=== PATIENT | male | born 1955 | race Caucasian/White ===

== ENCOUNTER → 2017-04-26 | Outpatient (CLI) | payer OTHER ==
[~2017-04-26] MED LIST: ALBU90OI INH; ALLERGY RELIEF10 MG PO; ALLO100; ALLO100 PO; ALLO300; ARIPIPRAZOLE15 MG; ASPI81CH; ASPI81EC PO; AZIT250 PO; Abilify2 MG PO; BENTYL20 MG PO; Benztropine Mesy1 MG; Byetta10 MCG/0.0 SQ; CELE200 PO; CEPH500 PO; CLOT1TC TOP; CYAN1000 PO; CYCL10 PO; DIPH50 PO; DOCU100 PO; DOXY100 PO; Diflucan150 MG PO; ENAL10; EUCERIN ORIGIN250 ML TOP; FISH1000 PO; FLUC200 PO; FLUT.05NI; Flonase 0.05% N16 GM; GABA100 PO; GABA400 PO; GLUC500 PO; GLUCOSAMINE S1000 M1 PO; GUAI1200ER; GUAI600T33 PO; IBUHYD PO; LAVAP17G PO; LEVO750 PO; LISI20; LISI20 PO; LITH300C; LITH300C PO; LITH300CA PO; LOSA50; LOSA50 PO; MELA3 PO; METAGLIP; METF500 PO; MONT10T PO; MULTI VITAMIN1 EACH PO; MULVITMINF PO; Meribin5 MG; NAPR500 PO; NYST100000 PO; OLAN5A MM; OMEP40CA12 PO; PANT40 PO; PRAV20 PO; RANI150 PO; RXCLIN PO; SENN187 PO; SIME80CH PO; SODBIC650 PO; Saw Palmetto450 MG PO; TAMS.4ER PO; TRAZ50 PO
== END | disposition home or self-care (01) ==
LOC: LAB 15:50
DX: R35.0 Frequency of micturition (principal); R39.14 Feeling of incomplete bladder emptying
CPT/HCPCS: 87086

== ENCOUNTER → 2018-05-17 | Outpatient (CLI) | payer OTHER ==
[2018-05-17 16:22] LABS: Source, Urine Clean Catch
[2018-05-17 18:13] LABS: Bilirubin, Urine Neg (Neg); Blood, Urine Neg (Neg); Glucose Qualitative, Urine Neg (Neg); Ketones, Urine Neg (Neg); Leukocyte Esterase, Urine Neg (Neg); Nitrite, Urine Neg (Neg); Protein, Urine Neg (Neg); Specific Gravity, Urine 1.015 (1.003-1.022); Urobilinogen, Urine NORM (Normal)
[2018-05-17 18:26] LABS: Appearance, Urine Clear (Clear); Color, Urine Yellow (P-Yellow)
== END | disposition home or self-care (01) ==
LOC: LAB SHORT 16:19 → LAB 16:19
PROVIDERS: Family Medicine
DX: M54.5 Low back pain (principal)
CPT/HCPCS: 81003

== ENCOUNTER 2020-06-30 07:03 | Day surgery (SDC) | payer OTHER ==
[~2020-06-30] VITALS: Ht 177.8 cm; Wt 87.3 kg
[2020-06-30] MEDS ORDERED: METF500 PO (08:08)
[2020-06-30] MEDS ORDERED: GENICIN500 M1 PO (08:09)
[2020-06-30] MEDS ORDERED: SENNA LAXATIVE8.6 MG PO (08:09)
[2020-06-30] MEDS ORDERED: FENOFIBRATE48 MG PO (08:09)
[2020-06-30] MEDS ORDERED: LOSA50 PO (08:10)
[2020-06-30] MEDS ORDERED: PIOG15 PO (08:10)
[2020-06-30] MEDS ORDERED: MIRT15ST PO (08:10)
[2020-06-30] MEDS ORDERED: SODBIC650 PO (08:10)
[2020-06-30] MEDS ORDERED: Aspir 8181 MG PO (08:11)
--- NOTE | 2020-06-30 08:17 | NUR ---
06/30/20 0817 Carol Alcaraz V 1 DROP TETRACAINE APPLIED IN L EYE AT 0752, 1 PLEDGET APPLIED IN L LOWER EYE LID AT 0800 PER ORDERS.
== END 2020-06-30 09:35 | disposition home or self-care (01) ==
LOC: ORSCSDS 07:03
PROVIDERS: Ophthalmology
PROC: 08RK3JZ Replacement of Left Lens with Synthetic Substitute, Percutaneous Approach (ICD-10-PCS; principal; 2020-06-30 08:45)
DX: H25.12 Age-related nuclear cataract, left eye (principal); E11.9 Type 2 diabetes mellitus without complications; Z87.891 Personal history of nicotine dependence; Z79.899 Other long term (current) drug therapy; Z79.84 Long term (current) use of oral hypoglycemic drugs
CPT/HCPCS: 82947; A9270; J2001; J2250; J3010; J3301; J7040; V2632

== ENCOUNTER → 2021-03-22 | Outpatient (CLI) | payer OTHER ==
[~2021-03-22] MED LIST changes: +Aspir 8181 MG PO; +FENOFIBRATE48 MG PO; +GENICIN500 M1 PO; +MIRT15ST PO; +PIOG15 PO; +SENNA LAXATIVE8.6 MG PO
== END | disposition home or self-care (01) ==
LOC: LAB SHORT 16:01
PROVIDERS: Physician Assistant
DX: R35.0 Frequency of micturition (principal)
CPT/HCPCS: 84153

== ENCOUNTER 2021-04-17 04:16 | Emergency (ER) | payer OTHER ==
[~2021-04-17] VITALS: Ht 180.3 cm; Wt 88.0 kg
[2021-04-17 05:01] LABS: BASOPHILS ABSOLUTE AUTO 0.01 K/mm3 (0.00-0.23); BASOPHILS PERCENT AUTO 0 % (0-2); EOSINOPHILS PERCENT AUTO 0 % (0-6); Hematocrit 41.6 % (37.0-53.0); Hemoglobin 14.5 g/dL (13.5-17.5); IMMATURE GRAN ABSOLUTE AUTO 0.05 K/mm3 (0.00-0.10); IMMATURE GRAN PERCENT AUTO 0 % (0-1); LYMPHOCYTES ABSOLUTE AUTO 1.45 K/mm3 (0.84-5.20); LYMPHOCYTES PERCENT AUTO 12 % (21-46); MONOCYTES ABSOLUTE AUTO 1.12 K/mm3 (0.16-1.47); MONOCYTES PERCENT AUTO 9 % (4-13); Mean Corpuscular HGB 31.5 pg (26.0-34.0); Mean Corpuscular HGB Conc 34.9 g/dL (31.5-36.5); Mean Corpuscular Volume 90 fL (80-100); Mean Platelet Volume 10.6 fL (9.1-12.4); NEUTROPHILS ABSOLUTE AUTO 9.53 K/mm3 (1.96-9.15); NEUTROPHILS PERCENT AUTO 78 % (41-73); Platelet Count 265 K/mm3 (150-400); RDW Coefficient Variation 12.8 % (11.7-14.2); RDW Standard Deviation 41.8 fL (35.1-46.3); Red Blood Cell Count 4.61 M/mm3 (4.30-5.90); White Blood Cell Count 12.16 K/mm3 (4.00-11.30)
[2021-04-17 05:25] LABS: Alanine Aminotransfer (ALT/SGP 40 U/L (12-78); Albumin, Blood 3.6 g/dL (3.4-5.0); Albumin/Globulin Ratio 0.8 (0.8-1.8); Alk Phos 57 U/L (50-136); Anion Gap 9 mmol/L (6-16); Aspartate Aminotrans (AST/SGOT 40 U/L (12-37); Bilirubin, Total 0.5 mg/dL (0.1-1.0); Blood Urea Nitrogen 23 mg/dL (8-24); Bun/Creatinine Ratio 21.3 (12.0-20.0); CO2, Blood 23 mmol/L (21-32); Calcium, Blood 9.6 mg/dL (8.5-10.1); Chloride, Blood 100 mmol/L (98-108); Creatinine, Blood 1.08 mg/dL (0.60-1.20); Globulin, Blood 4.3 g/dL (2.2-4.0); Glomerular Filtration Rate >60 (60-); Glucose, Blood 167 mg/dL (70-99); Potassium, Blood 4.8 mmol/L (3.5-5.5); Sodium, Blood 132 mmol/L (136-145); Total Protein, Blood 7.9 g/dL (6.4-8.2)
[2021-04-17 08:28] LABS: Influenza A, PCR NEGATIVE (NEGATIVE); Influenza B, PCR NEGATIVE (NEGATIVE); Resp Syncytial Virus, PCR NEGATIVE (NEGATIVE); SARS-Cov-2 (COVID-19) PCR, MMC NEGATIVE (NEGATIVE)
[2021-04-17 09:02] LABS: Prothrombin Time Results 10.5 Sec (9.7-11.5)
[2021-04-17 09:20] LABS: Source, Urine Clean Catch
[2021-04-17 09:22] LABS: Appearance, Urine Clear (Clear); Bilirubin, Urine Neg (Neg); Blood, Urine Neg (Neg); Color, Urine Yellow (P-Yellow); Glucose Qualitative, Urine 3+ (Neg); Ketones, Urine Neg (Neg); Leukocyte Esterase, Urine Neg (Neg); Nitrite, Urine Neg (Neg); Protein, Urine 2+ (Neg); Urobilinogen, Urine NORM (Normal)
[2021-04-17 09:38] LABS: Bacteria Not Seen /hpf; Red Blood Cells, Urine 0-2 /hpf (0-2); Squamous Epithelial Cells Not Seen /hpf (Few); White Blood Cells, Urine 0-2 /hpf (0-5)
[2021-04-17 14:17] LABS: Alanine Aminotransfer (ALT/SGP 37 U/L (12-78); Albumin, Blood 3.6 g/dL (3.4-5.0); Alk Phos 61 U/L (50-136); Anion Gap 7 mmol/L (6-16); Aspartate Aminotrans (AST/SGOT 21 U/L (12-37); Bilirubin, Total 0.4 mg/dL (0.1-1.0); Blood Urea Nitrogen 18 mg/dL (8-24); Bun/Creatinine Ratio 16.8 (12.0-20.0); CO2, Blood 24 mmol/L (21-32); Chloride, Blood 102 mmol/L (98-108); Creatinine, Blood 1.07 mg/dL (0.60-1.20); Globulin, Blood 3.6 g/dL (2.2-4.0); Glomerular Filtration Rate >60 (60-); Glucose, Blood 142 mg/dL (70-99); Potassium, Blood 4.1 mmol/L (3.5-5.5); Sodium, Blood 133 mmol/L (136-145); Total Protein, Blood 7.2 g/dL (6.4-8.2)
== END 2021-04-17 16:05 | disposition short-term general hospital (02) ==
LOC: ER 04:16
PROVIDERS: Emergency Medicine; Student in an Organized Health Care Education/Training Program
DX: S06.370A Contusion, laceration, and hemorrhage of cerebellum without loss of consciousness, initial encounter (principal); S06.380A Contusion, laceration, and hemorrhage of brainstem without loss of consciousness, initial encounter; I12.9 Hypertensive chronic kidney disease with stage 1 through stage 4 chronic kidney disease, or unspecified chronic kidney disease; T45.525A Adverse effect of antithrombotic drugs, initial encounter; W19.XXXA Unspecified fall, initial encounter; Z88.5 Allergy status to narcotic agent; Z88.2 Allergy status to sulfonamides; Z88.1 Allergy status to other antibiotic agents; Z79.899 Other long term (current) drug therapy; Z79.84 Long term (current) use of oral hypoglycemic drugs; Z79.82 Long term (current) use of aspirin; E11.22 Type 2 diabetes mellitus with diabetic chronic kidney disease; M10.9 Gout, unspecified; E78.5 Hyperlipidemia, unspecified; N18.9 Chronic kidney disease, unspecified; Z87.891 Personal history of nicotine dependence
CPT/HCPCS: 0241U; 36415; 36556; 70450; 70553; 71045; 80053; 81001; 85025; 85610; 85730; 86850; 86900; 86901; 93005; 93010; 96365; 96366; 96375; 99285-25; A9579; C1751; J2060; J2765; J7030; J7050; P9053

== ENCOUNTER 2021-05-24 11:33 | Observation (INO) | payer OTHER ==
[~2021-05-24] VITALS: Ht 180.3 cm; Wt 81.7 kg
[~2021-05-24 11:33] MED LIST changes: +GLUCOPHAGE1000 M2 PO
[2021-05-24 12:29] LABS: Source, Urine Clean Catch
[2021-05-24 12:37] LABS: Bilirubin, Urine Neg (Neg); Blood, Urine 2+ (Neg); Glucose Qualitative, Urine 2+ (Neg); Ketones, Urine 2+ (Neg); Leukocyte Esterase, Urine Neg (Neg); Nitrite, Urine Neg (Neg); Protein, Urine 2+ (Neg); Specific Gravity, Urine 1.015 (1.003-1.022); Urobilinogen, Urine NORM (Normal)
[2021-05-24 12:42] LABS: Appearance, Urine Hazy (Clear); Color, Urine Pale Yellow (P-Yellow)
[2021-05-24 12:43] LABS: Amorphous Light (0-Heavy); Bacteria Rare /hpf; Squamous Epithelial Cells Rare /hpf (Few); White Blood Cells, Urine 0-2 /hpf (0-5)
[2021-05-24 13:30] LABS: BASOPHILS ABSOLUTE AUTO 0.01 K/mm3 (0.00-0.23); BASOPHILS PERCENT AUTO 0 % (0-2); EOSINOPHILS PERCENT AUTO 0 % (0-6); Hematocrit 42.6 % (37.0-53.0); Hemoglobin 15.1 g/dL (13.5-17.5); IMMATURE GRAN ABSOLUTE AUTO 0.03 K/mm3 (0.00-0.10); IMMATURE GRAN PERCENT AUTO 0 % (0-1); LYMPHOCYTES ABSOLUTE AUTO 0.96 K/mm3 (0.84-5.20); LYMPHOCYTES PERCENT AUTO 9 % (21-46); MONOCYTES ABSOLUTE AUTO 1.27 K/mm3 (0.16-1.47); MONOCYTES PERCENT AUTO 12 % (4-13); Mean Corpuscular HGB 30.7 pg (26.0-34.0); Mean Corpuscular HGB Conc 35.4 g/dL (31.5-36.5); Mean Corpuscular Volume 87 fL (80-100); Mean Platelet Volume 9.4 fL (9.1-12.4); NEUTROPHILS ABSOLUTE AUTO 8.21 K/mm3 (1.96-9.15); NEUTROPHILS PERCENT AUTO 78 % (41-73); Platelet Count 247 K/mm3 (150-400); RDW Standard Deviation 38.1 fL (35.1-46.3); Red Blood Cell Count 4.92 M/mm3 (4.30-5.90); White Blood Cell Count 10.48 K/mm3 (4.00-11.30)
[2021-05-24 13:52] LABS: Alanine Aminotransfer (ALT/SGP 27 U/L (12-78); Albumin, Blood 3.6 g/dL (3.4-5.0); Albumin/Globulin Ratio 0.9 (0.8-1.8); Alk Phos 97 U/L (50-136); Anion Gap 12 mmol/L (6-16); Aspartate Aminotrans (AST/SGOT 60 U/L (12-37); Bilirubin, Total 0.9 mg/dL (0.1-1.0); Blood Urea Nitrogen 15 mg/dL (8-24); Bun/Creatinine Ratio 14.6 (12.0-20.0); CO2, Blood 19 mmol/L (21-32); Chloride, Blood 95 mmol/L (98-108); Creatinine, Blood 1.03 mg/dL (0.60-1.20); Globulin, Blood 3.9 g/dL (2.2-4.0); Glomerular Filtration Rate >60 (60-); Glucose, Blood 138 mg/dL (70-99); Sodium, Blood 126 mmol/L (136-145); Total Protein, Blood 7.5 g/dL (6.4-8.2)
[2021-05-24 16:27] LABS: Influenza A, PCR NEGATIVE (NEGATIVE); Influenza B, PCR NEGATIVE (NEGATIVE); Resp Syncytial Virus, PCR NEGATIVE (NEGATIVE)
[2021-05-24 17:58] LABS: SARS-Cov-2 (COVID-19) PCR, MMC POSITIVE (NEGATIVE)
[2021-05-24] MEDS ORDERED: ALLO100 PO (20:43)
[2021-05-24] MEDS ORDERED: ASPI81CH PO (20:45)
[2021-05-24] MEDS ORDERED: FENOFIBRATE48 MG PO (20:46)
[2021-05-24] MEDS ORDERED: GABA300 PO (20:47)
[2021-05-24] MEDS ORDERED: GLUCOSAMINE HCL PO (20:48)
[2021-05-24] MEDS ORDERED: LOSARTAN POTAS100 M1 PO (20:50)
[2021-05-24] MEDS ORDERED: Glucophage 500 mg PO (20:51)
[2021-05-24] MEDS ORDERED: MIRTAZAPINE7.5 M1 PO (20:52)
[2021-05-24] MEDS ORDERED: OLAN2.5 PO (20:54)
[2021-05-24] MEDS ORDERED: PANT40 PO (20:55)
[2021-05-24] MEDS ORDERED: ACTOS15 MG PO (20:56)
[2021-05-24] MEDS ORDERED: PRAVASTATIN SOD10 M1 PO (20:57)
[2021-05-24] MEDS ORDERED: SENN187 PO (20:58)
[2021-05-24] MEDS ORDERED: SODBIC650 PO (21:00)
--- NOTE | 2021-05-25 05:26 | NUR ---
SHIFT SUMMARY AOX3-SELF, PLACE, DATE, SITUATION. REPORTS FEELING FORGETFUL. SLOW TO RESPOND. 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 DENIES N/T. FOLLOWS DIRECTIONS. POOR HISTORIAN, UNAWARE MEDS & STATES SOMEONE ELSE GETS THEM PREPARED FOR HIM. ADMITTED FOR POSS CVA, DX c COVID. HAD BEEN HAVING MULT FALLS @HOME. EXCORIATIONS, SCRAPES, BRUISING SCATTERED T/O BODY, SEE PICTURES IN CHART. HAS SUTURES ON L EYE, BRUISED R PINKY FINGER. VSS. TELE NSR @93. DENIES PAIN, N/V. SPO2 >90% ON RA. LS DIM IN BASES. E/U RESP. GETS IRRITABLE c STAFF WHEN PROVIDING CARE. FLAT WITHDRAWN AFFECT. CALL LIGHT & BED ALARM IN PLACE. WCTM.
[2021-05-25 05:36] LABS: BASOPHILS ABSOLUTE AUTO 0.01 K/mm3 (0.00-0.23); BASOPHILS PERCENT AUTO 0 % (0-2); EOSINOPHILS ABSOLUTE AUTO 0.02 K/mm3 (0.00-0.68); EOSINOPHILS PERCENT AUTO 0 % (0-6); Hematocrit 41.5 % (37.0-53.0); Hemoglobin 14.5 g/dL (13.5-17.5); IMMATURE GRAN ABSOLUTE AUTO 0.02 K/mm3 (0.00-0.10); IMMATURE GRAN PERCENT AUTO 0 % (0-1); LYMPHOCYTES ABSOLUTE AUTO 0.86 K/mm3 (0.84-5.20); LYMPHOCYTES PERCENT AUTO 15 % (21-46); MONOCYTES ABSOLUTE AUTO 0.95 K/mm3 (0.16-1.47); MONOCYTES PERCENT AUTO 17 % (4-13); Mean Corpuscular HGB 30.8 pg (26.0-34.0); Mean Corpuscular HGB Conc 34.9 g/dL (31.5-36.5); Mean Corpuscular Volume 88 fL (80-100); Mean Platelet Volume 9.8 fL (9.1-12.4); NEUTROPHILS ABSOLUTE AUTO 3.81 K/mm3 (1.96-9.15); NEUTROPHILS PERCENT AUTO 67 % (41-73); Platelet Count 219 K/mm3 (150-400); RDW Coefficient Variation 12.5 % (11.7-14.2); RDW Standard Deviation 40.1 fL (35.1-46.3); Red Blood Cell Count 4.71 M/mm3 (4.30-5.90); White Blood Cell Count 5.67 K/mm3 (4.00-11.30)
[2021-05-25 06:18] LABS: Bun/Creatinine Ratio 11.3 (12.0-20.0); Creatinine, Blood 1.24 mg/dL (0.60-1.20); Potassium, Blood 3.8 mmol/L (3.5-5.5)
--- NOTE | 2021-05-25 14:53 | NUR ---
ABD PAD APPLIED TO LEFT KNEE WHERE SOME ABRASIONS STARTED TO BLEED WHEN WORKING WITH PT/OT.
--- NOTE | 2021-05-25 15:43 | NUR ---
NEW CONDOM CATH APPLIED PER PAUL CARDOZO CNA. TOLERATED WELL.
--- NOTE | 2021-05-25 16:57 | NUR ---
NO C/O PAIN TODAY. TOLERATED FOOD AND FLUIDS. CONDOM CATHETER HAD TO BE REPLACED X 3 TODAY (TWICE DUE TO GETTING UP WITH THERAPY). EXCELLENT URINE OUTPUT. IVF INFUSING WITHOUT DIFFICULTY. HAND XRAY ORDERED AND DUE TO BE DONE. PINKIE FINGER HAS NOT HAD ANY INCREASE IN EDEMA SINCE MARKED BY THE ECONOMIC HISTORY TEACHER NURSE. PATIENT HAS A SUTURE ABOVE HIS EYE BROW FROM A PREVIOUS ER VISIT THAT HE STATES NEEDS TO BE REMOVED TOMORROW OR THE FOLLOWING DAY. WILL INFORM PM SHIFT ABOUT IT SO THE DAY NURSE CAN DISCUSS WITH MD ON ROUNDS. PATIENT IS AWARE. WILL MONITOR.
[2021-05-26] MEDS ORDERED: VITAMIN D325 MC3 PO (03:02)
[2021-05-26] MEDS ORDERED: TAMS.4ER PO (03:12)
[2021-05-26] MEDS ORDERED: CARV25 PO (03:12)
[2021-05-26] MEDS ORDERED: DOCU100 PO (03:14)
[2021-05-26] MEDS ORDERED: MIRALAX17 GM PO (03:14)
[2021-05-26] MEDS ORDERED: OLAN2.5 PO (03:17)
[2021-05-26] MEDS ORDERED: ZYRTEC10 M1 PO (03:19)
[2021-05-26] MEDS ORDERED: Flonase 0.05% N16 GM (03:19)
[2021-05-26] MEDS ORDERED: FISH OIL 1,2001 EAC1 PO (03:22)
--- NOTE | 2021-05-26 04:54 | NUR ---
SHIFT SUMMARY PT IS A 66 Y/O MALE, ADMITTED FOR CVA. HE IS A&O X 3, FORGETFUL AT TIMES. 1PA C FWW TO THE BSC. CONDOM CATH IN PLACE, REPLACED ONCE DURING THE NIGHT AFTER PT PULLED IT OFF. NO C/O ACUTE PAIN, NAUSEA OR SOB. TELE SHOWED NSR IN THE 80S. VITAL SIGNS OTHERWISE STABLE. PT RECEIVING NS @ 75 ML/HR. NO OTHER ACUTE CHANGES IN PT CONDITION NOTED DURING THE NIGHT. WILL CONTINUE TO MONITOR AND TREAT PER EMAR UNTIL HAND OFF TO DAY SHIFT RN.
--- NOTE | 2021-05-26 08:31 | NUR ---
SPOKE TO DR. ADASM, RECEIVED TELEPHONE CONFIRMATION THAT L HAND XRAY THAT WAS ORDERED SHOULD BE CHANGED TO R HAND. VÍCTOR LING NOTIFIED AND WILL CHANGE ORDER WHEN SHE RETURNS TO RADIOLOGY DEPT.
--- NOTE | 2021-05-26 17:51 | NUR ---
SHIFT SUMMARY: NO ACUTE EVENTS. DENIES PAIN. NEURO EXAM UNCHANGED. A&O X 2-3, POOR SHORT TERM MEMORY, CAN BE DEMANDING AT TIMES. NO EVENTS ON TELEMETRY, SR 90'S. HAS CONDOM CATH DRAINING YELLOW URINE. HAD XRAY OF R HAND. HAS MULTIPLE ABRASIONS AND CONTUSIONS ALL OVER HIS BODY. SUTURES IN PLACE OVER L EYE. PLAN IS PLACEMENT AT [facility] COVID UNIT.
--- NOTE | 2021-05-27 04:07 | NUR ---
SHIFT SUMMARY PT TOOK CONDOM CATH OFF SEVERAL TIMES. UNABLE TO GET IT TO STAY ON. ASKED PT IF HE COULD USE URINAL, HE SAID NO, BUT WHEN HANDED A URINAL, PT URINATED INTO IT. PT USED URINAL SEVERAL TIMES TONIGHT AND THEN BEGAN URINATING ON HIS GOWN AND CALLING STAFF INTO ROOM TO CHANGE HIM. PT ASKED FOR COUGH MEDICINE, WHICH HE WAS GIVEN. PT HAS WOUNDS ALL OVER HIS BODY. MEPILEX DRESSING TO L KNEE. 1 PERSON ASSIST WITH FWW. PT IS A&O X 2-3.
--- NOTE | 2021-05-27 10:36 | NUR ---
PATIENT ACCEPTED TO [facility] COVID UNIT. DR. REYNOLDS NOTIFIED. ALSO ASKED FOR ORDER TO REMOVE SUTURES FROM L EYEBROW, AND REQUESTED [facility] TO ASSESS PT'S KIDNEYS AND PERHAPS D/C IVF.
--- NOTE | 2021-05-27 14:44 | NUR ---
SUTURE REMOVAL: EDUCATED PT ABOUT SUTURE REMOVAL PROCESS, VERBALLY AGREED TO PROCEED. THREE SUTURES TOTAL REMOVED FROM L ORBIT. NO BLEEDING NOTED, LACERATION IS WELL APPROXIMATED AND HEALING, NO EDEMA, ERYTHEMA, OR DRAINAGE. PT TOLERATED PROCEDURE WELL.
[2021-05-27] MEDS ORDERED: Melatonin PO (15:26)
[2021-05-27] MEDS ORDERED: ROBITUSSIN DM PO (15:31)
--- NOTE | 2021-05-27 16:46 | NUR ---
PT TRANSFERRING TO [facility]. ATTEMPTED TO GIVE REPORT TO FACILITY NURSE, BUT KEPT BEING PLACED ON HOLD AND RE-ROUTED REPEATEDLY WITH NO ANSWER. LEFT MESSAGE WITH GENETIC PHYSICIAN TO HAVE NURSE CALL BACK FOR REPORT.
--- NOTE | 2021-05-27 18:18 | NUR ---
PATIENT DISCHARGED TO [facility] UNIT FOR REHAB VIA AMBULANCE. IV SALINE LOCKS AND TELEMETRY REMOVED. OFF UNIT AT 1812 VIA GURNEY. NO BELONGINGS FOUND IN ROOM.
== END 2021-05-27 18:00 ==
LOC: ER 11:33 → MEDS 11:34 → ERHOLD 11:34 → MEDS 21:20
PROVIDERS: Emergency Medicine; ADMIT Internal Medicine
DX: I63.9 Cerebral infarction, unspecified (principal); R29.6 Repeated falls; I95.1 Orthostatic hypotension; U07.1 COVID-19; E87.1 Hypo-osmolality and hyponatremia; E11.22 Type 2 diabetes mellitus with diabetic chronic kidney disease; E11.42 Type 2 diabetes mellitus with diabetic polyneuropathy; I12.9 Hypertensive chronic kidney disease with stage 1 through stage 4 chronic kidney disease, or unspecified chronic kidney disease; N18.9 Chronic kidney disease, unspecified; M10.9 Gout, unspecified; E78.00 Pure hypercholesterolemia, unspecified; G47.33 Obstructive sleep apnea (adult) (pediatric); K21.9 Gastro-esophageal reflux disease without esophagitis; Z88.5 Allergy status to narcotic agent; Z88.2 Allergy status to sulfonamides; Z88.1 Allergy status to other antibiotic agents; Z88.8 Allergy status to other drugs, medicaments and biological substances; Z79.84 Long term (current) use of oral hypoglycemic drugs; Z79.82 Long term (current) use of aspirin
CPT/HCPCS: 0241U; 36415; 70450; 71045; 73120; 80048; 80053; 81001; 82947; 85025; 93005; 93010; 97110; 97161; 97166; 97530; 97530-CO; 97535; 97535-CO; 99285-25; A9270; G0378; J7030

== ENCOUNTER 2021-06-04 16:10 | Inpatient (IN) | payer OTHER ==
[~2021-06-04] VITALS: Ht 182.9 cm; Wt 82.0 kg
[~2021-06-04 16:10] MED LIST changes: +ACTOS15 MG PO; +ASPI81CH PO; +CARV25 PO; +FISH OIL 1,2001 EAC1 PO; +GABA300 PO; +GLUCOSAMINE HCL PO; +Glucophage 500 mg PO; +LOSARTAN POTAS100 M1 PO; +MIRALAX17 GM PO; +MIRTAZAPINE7.5 M1 PO; +Melatonin PO; +OLAN2.5 PO; +PRAVASTATIN SOD10 M1 PO; +ROBITUSSIN DM PO; +VITAMIN D325 MC3 PO; +ZYRTEC10 M1 PO
[2021-06-04 16:34] LABS: BASOPHILS ABSOLUTE AUTO 0.07 K/mm3 (0.00-0.23); BASOPHILS PERCENT AUTO 0 % (0-2); EOSINOPHILS ABSOLUTE AUTO 0.03 K/mm3 (0.00-0.68); EOSINOPHILS PERCENT AUTO 0 % (0-6); Hematocrit 43.8 % (37.0-53.0); Hemoglobin 14.2 g/dL (13.5-17.5); IMMATURE GRAN ABSOLUTE AUTO 0.17 K/mm3 (0.00-0.10); IMMATURE GRAN PERCENT AUTO 1 % (0-1); LYMPHOCYTES ABSOLUTE AUTO 1.31 K/mm3 (0.84-5.20); LYMPHOCYTES PERCENT AUTO 6 % (21-46); MONOCYTES ABSOLUTE AUTO 2.27 K/mm3 (0.16-1.47); MONOCYTES PERCENT AUTO 10 % (4-13); Mean Corpuscular HGB 30.1 pg (26.0-34.0); Mean Corpuscular HGB Conc 32.4 g/dL (31.5-36.5); Mean Corpuscular Volume 93 fL (80-100); Mean Platelet Volume 9.1 fL (9.1-12.4); NEUTROPHILS ABSOLUTE AUTO 19.75 K/mm3 (1.96-9.15); NEUTROPHILS PERCENT AUTO 84 % (41-73); Platelet Count 364 K/mm3 (150-400); RDW Coefficient Variation 12.7 % (11.7-14.2); RDW Standard Deviation 43.3 fL (35.1-46.3); Red Blood Cell Count 4.72 M/mm3 (4.30-5.90)
[2021-06-04 16:55] LABS: Source, Urine Foley catheter
[2021-06-04 16:56] LABS: Albumin, Blood 3.4 g/dL (3.4-5.0); Albumin/Globulin Ratio 0.8 (0.8-1.8); Bilirubin, Total 0.4 mg/dL (0.1-1.0); Calcium, Blood 9.3 mg/dL (8.5-10.1); Creatinine, Blood 1.37 mg/dL (0.60-1.20); Globulin, Blood 4.1 g/dL (2.2-4.0); Potassium, Blood 5.8 mmol/L (3.5-5.5); Total Protein, Blood 7.5 g/dL (6.4-8.2)
[2021-06-04 17:00] LABS: Appearance, Urine Clear (Clear); Bilirubin, Urine Neg (Neg); Blood, Urine Neg (Neg); Color, Urine Yellow (P-Yellow); Glucose Qualitative, Urine 2+ (Neg); Ketones, Urine 1+ (Neg); Leukocyte Esterase, Urine Neg (Neg); Nitrite, Urine Neg (Neg); Protein, Urine 2+ (Neg); Specific Gravity, Urine 1.025 (1.003-1.022); Urobilinogen, Urine 1+ (Normal)
[2021-06-04 17:19] LABS: Bacteria Mod /hpf; Red Blood Cells, Urine Not Seen /hpf (0-2); Squamous Epithelial Cells Not Seen /hpf (Few); White Blood Cells, Urine 0-2 /hpf (0-5)
[2021-06-04 17:22] LABS: PCO2 Arterial 42.5 mmHg (35-45); PO2 Arterial 63.1 mmHg (80-100); pH Blood Arterial 7.35 (7.35-7.45)
--- NOTE | 2021-06-05 | NUR ---
PT ADMITTED TO ROOM ICU 11 FROM ED. ARRIVES TO ROOM AT 2009. REPORT RECEIVED. PT TRANSFERRED FROM [facility] TO BED WITH 5 PERSON ASSIST. PT NOT RESPONSIVE TO COMMANDS. DOES MOVE UPPER EXTREMITIES SLIGHTLY WHILE BEING SUCTIONED. UNSURE OF IF THIS IS REFLEX OR PURPOSEFUL. PUPILS 2MM AND WILL RESPOND TO LIGHT. DOES NOT TRACK. HAVE NOT STARTED PROPOFOL. DR GONZALEZ HAS COME TO SEE PT. ORDERS HAVE BEEN RECEIVED. YELLOW SECRETIONS RETURNED WITH ETT SUCTIONING.
[2021-06-05 04:36] LABS: BASOPHILS ABSOLUTE AUTO 0.03 K/mm3 (0.00-0.23); BASOPHILS PERCENT AUTO 0 % (0-2); EOSINOPHILS ABSOLUTE AUTO 0.04 K/mm3 (0.00-0.68); EOSINOPHILS PERCENT AUTO 0 % (0-6); Hematocrit 38.9 % (37.0-53.0); Hemoglobin 12.9 g/dL (13.5-17.5); IMMATURE GRAN ABSOLUTE AUTO 0.05 K/mm3 (0.00-0.10); IMMATURE GRAN PERCENT AUTO 0 % (0-1); LYMPHOCYTES ABSOLUTE AUTO 2.15 K/mm3 (0.84-5.20); LYMPHOCYTES PERCENT AUTO 15 % (21-46); MONOCYTES ABSOLUTE AUTO 0.97 K/mm3 (0.16-1.47); MONOCYTES PERCENT AUTO 7 % (4-13); Mean Corpuscular HGB 30.5 pg (26.0-34.0); Mean Corpuscular HGB Conc 33.2 g/dL (31.5-36.5); Mean Corpuscular Volume 92 fL (80-100); Mean Platelet Volume 8.9 fL (9.1-12.4); NEUTROPHILS ABSOLUTE AUTO 11.58 K/mm3 (1.96-9.15); NEUTROPHILS PERCENT AUTO 78 % (41-73); Platelet Count 295 K/mm3 (150-400); RDW Coefficient Variation 12.9 % (11.7-14.2); Red Blood Cell Count 4.23 M/mm3 (4.30-5.90); White Blood Cell Count 14.82 K/mm3 (4.00-11.30)
[2021-06-05 04:53] LABS: Alanine Aminotransfer (ALT/SGP 26 U/L (12-78); Albumin, Blood 2.5 g/dL (3.4-5.0); Albumin/Globulin Ratio 0.7 (0.8-1.8); Alk Phos 102 U/L (50-136); Anion Gap 5 mmol/L (6-16); Aspartate Aminotrans (AST/SGOT 72 U/L (12-37); Bilirubin, Total 0.3 mg/dL (0.1-1.0); Blood Urea Nitrogen 23 mg/dL (8-24); Bun/Creatinine Ratio 19.7 (12.0-20.0); CO2, Blood 25 mmol/L (21-32); Calcium, Blood 8.6 mg/dL (8.5-10.1); Chloride, Blood 112 mmol/L (98-108); Creatinine, Blood 1.17 mg/dL (0.60-1.20); Globulin, Blood 3.8 g/dL (2.2-4.0); Glomerular Filtration Rate >60 (60-); Glucose, Blood 149 mg/dL (70-99); Sodium, Blood 142 mmol/L (136-145); Total Protein, Blood 6.3 g/dL (6.4-8.2)
--- NOTE | 2021-06-05 06:45 | NUR ---
PT HAS NOT BEEN ON ANY SEDATION THROUGHOUT THE NIGHT. DOES HAVE PUPILLARY RESPONSE TO LIGHT. DOES NOT RESPOND TO ANY COMMANDS. NO GAG REFLEX NOTED. DOES COUGH WITH DEEP ETT SUCTIONING. WILL CONTINUE TO MONITOR PT, AND WILL REPORT OFF TO ONCOMING RN.
--- NOTE | 2021-06-05 07:00 | NUR ---
ASSUME CARE: I have assumed care of this pt.
--- NOTE | 2021-06-05 11:57 | NUR ---
Received t/c from Claudia, ICU charge nurse regarding care planning. Spoke to pt's sister Nara, who resides in [place] and reports she is unable to travel at this time. She is tearful on the phone, states she knows pt's wishes were "Do Not Resuscitate". She states she would like it if his ex- could be present prior to withdrawing care, as she is, "The closest thing [place] has to family in [place]". states he and his exwife have remained close even with the divorce. She states pt has a daughter, but that pt and daughter are estranged, and there is no available contact information for her at this time. Will await return phone call from pt's sister.
--- NOTE | 2021-06-05 14:47 | NUR ---
Spoke to pt's sister again today. She tells me she was able to reach pt's ex-, Stefan who states she will be here tomorrow morning at 11am for withdrawal of care.
[2021-06-05 15:49] LABS: U Amphetamine Screen Not Detected; U Barbituate Screen Not Detected; U Benzodiazapine Screen Not Detected; U Buprenorphine Screen Not Detected; U Cannabinoids Screen Not Detected; U Cocaine Screen Not Detected; U Methadone Screen Not Detected; U Methamphetamine Screen Not Detected; U Opiates Screen Not Detected; U Oxycodone Screen Not Detected; U Phencyclidine Screen Not Detected; U Propoxyphene Screen Not Detected
--- NOTE | 2021-06-05 18:13 | NUR ---
SHIFT SUMMARY: Pt unarousable throughout shift. BUE extend to noxious stimuli. He is moving his BLE spontaneously now, however there is no purposful movement. Vent settings unchanged; AC 35% peep 5. Palliative care relayed to this RN that family will arrive tomorrow at 1100 am to transition pt to comfort care. Pt's daughter called this evening and asked that phone be placed to pt's ear so she could "tell him goodbye". Multiple scabs and wound tears on bilateral knees and left elbow were photographed for chart and covered with pink foam dressings.
[2021-06-06 03:18] LABS: BASOPHILS ABSOLUTE AUTO 0.02 K/mm3 (0.00-0.23); BASOPHILS PERCENT AUTO 0 % (0-2); EOSINOPHILS ABSOLUTE AUTO 0.15 K/mm3 (0.00-0.68); EOSINOPHILS PERCENT AUTO 1 % (0-6); Hematocrit 37.6 % (37.0-53.0); Hemoglobin 12.4 g/dL (13.5-17.5); IMMATURE GRAN ABSOLUTE AUTO 0.06 K/mm3 (0.00-0.10); IMMATURE GRAN PERCENT AUTO 1 % (0-1); LYMPHOCYTES ABSOLUTE AUTO 2.16 K/mm3 (0.84-5.20); LYMPHOCYTES PERCENT AUTO 20 % (21-46); MONOCYTES PERCENT AUTO 9 % (4-13); Mean Corpuscular HGB 30.5 pg (26.0-34.0); Mean Corpuscular Volume 93 fL (80-100); Mean Platelet Volume 9.1 fL (9.1-12.4); NEUTROPHILS ABSOLUTE AUTO 7.31 K/mm3 (1.96-9.15); NEUTROPHILS PERCENT AUTO 69 % (41-73); Platelet Count 273 K/mm3 (150-400); RDW Standard Deviation 44.1 fL (35.1-46.3); Red Blood Cell Count 4.06 M/mm3 (4.30-5.90)
[2021-06-06 03:40] LABS: Alanine Aminotransfer (ALT/SGP 26 U/L (12-78); Albumin, Blood 2.5 g/dL (3.4-5.0); Albumin/Globulin Ratio 0.6 (0.8-1.8); Alk Phos 96 U/L (50-136); Anion Gap 7 mmol/L (6-16); Aspartate Aminotrans (AST/SGOT 64 U/L (12-37); Bilirubin, Total 0.5 mg/dL (0.1-1.0); Blood Urea Nitrogen 20 mg/dL (8-24); Bun/Creatinine Ratio 18.3 (12.0-20.0); CO2, Blood 22 mmol/L (21-32); Calcium, Blood 8.9 mg/dL (8.5-10.1); Chloride, Blood 111 mmol/L (98-108); Creatinine, Blood 1.09 mg/dL (0.60-1.20); Glomerular Filtration Rate >60 (60-); Glucose, Blood 115 mg/dL (70-99); Potassium, Blood 3.9 mmol/L (3.5-5.5); Sodium, Blood 140 mmol/L (136-145); Total Protein, Blood 6.5 g/dL (6.4-8.2)
--- NOTE | 2021-06-06 05:26 | NUR ---
No changes over night. Unresponsive, has flextion withdrawl with stimuli. Eyes with upward left gaze. no purposeful movement. Lungs clear, tolerating vent. Coughs with suctioning. Moderate amount of white thick secreations with ETT suctioning.
--- NOTE | 2021-06-06 08:00 | NUR ---
INITIAL ASSESSMENT PATIENT INTUBATED. PATIENT UNRESPONSIVE. + COUGH REFLEX NOTED. BUES FLACCID. OCCASIONAL SPONTANEOUS MOVEMENT OF BLES. NO SIGNS OF PAIN NOTED. L EYELID BLOODY. BOTH EYELIDS CRUSTY. EYES RESPOND BRISKLY TO LIGHT BUT ARE FIXED IN POSITION. PATIENT ON VENT SETTINGS OF AC 16, TV 450, PEEP 5 AND 35% FIO2. LUNGS CLEAR IN UPPER LOBES AND DIMINISHED IN LOWER LOBES. SCANT AMOUNT OF THICK, WHITE/ PAL SECRETIONS NOTED FROM ETT. PATIENT IN SR, HR 70S TO 80S. SBP 120S TO 130S. OG TO LIS; CLAMPED AFTER AM MEDS. DATE OF LAST BM UNKNOWN. VELEZ DRAINING YELLOW COLORED URINE. SCABS AND SKIN TEARS SCATTERED. FACE TRAN. SKIN PALE. IVS FLUSHED AND SALINE LOCKED. BED LOW. WILL CONTINUE TO MONITOR.
--- NOTE | 2021-06-06 11:18 | NUR ---
Pt's sister, step-daughter and daughter each said goodbye to patient via phone. No change in pt's condition. He remains unresponsive, currently on mechanical ventilation. No non-verbal s/s of anxiety or pain. Pt is not on sedation, and when his former spouse arrives, plan is to extubate pt and allow natural .
--- NOTE | 2021-06-06 12:30 | NUR ---
PATIENT EXTUBATED AT 1215. FAMILY ON PHONE AT PATIENT'S EAR PER FAMILY REQUEST. PALLIATIVE CARE AT BEDSIDE. TIME OF 1218. PATIENT APPEARED WITHOUT PAIN OR DISTRESS.
--- NOTE | 2021-06-06 15:00 | NUR ---
PATIENT'S BODY REMOVED BY CHAPARABELLA [facility]. NO PATIENT BELONGINGS NOTED IN ROOM TO SEND WITH BODY.
== END 2021-06-06 15:30 | DRG 65 ==
LOC: ER 16:10 → ICUW 16:11
PROVIDERS: Emergency Medicine; Family Medicine; ADMIT Internal Medicine
PROC: 5A1945Z Respiratory Ventilation, 24-96 Consecutive Hours (ICD-10-PCS; 2021-06-04)
PROC: 3E02340 Introduction of Influenza Vaccine into Muscle, Percutaneous Approach (ICD-10-PCS; principal; 2021-06-05)
DX: I63.9 Cerebral infarction, unspecified (principal); R65.10 Systemic inflammatory response syndrome (SIRS) of non-infectious origin without acute organ dysfunction; Z66 Do not resuscitate; Z23 Encounter for immunization; Z51.5 Encounter for palliative care; R29.6 Repeated falls; I12.9 Hypertensive chronic kidney disease with stage 1 through stage 4 chronic kidney disease, or unspecified chronic kidney disease; N18.2 Chronic kidney disease, stage 2 (mild); E11.40 Type 2 diabetes mellitus with diabetic neuropathy, unspecified; E78.5 Hyperlipidemia, unspecified; G47.30 Sleep apnea, unspecified; E11.22 Type 2 diabetes mellitus with diabetic chronic kidney disease; K21.9 Gastro-esophageal reflux disease without esophagitis; B19.20 Unspecified viral hepatitis C without hepatic coma; F31.9 Bipolar disorder, unspecified; Z88.1 Allergy status to other antibiotic agents; Z88.2 Allergy status to sulfonamides; Z88.5 Allergy status to narcotic agent; Z88.8 Allergy status to other drugs, medicaments and biological substances; Z79.82 Long term (current) use of aspirin; Z79.84 Long term (current) use of oral hypoglycemic drugs; Z79.899 Other long term (current) drug therapy; Z78.1 Physical restraint status
CPT/HCPCS: 31500; 36415; 36600; 51702; 70450; 70496; 70498; 71045; 80053; 81001; 82140; 82803; 82947; 83605; 84145; 85025; 87040; 87086; 90686; 93005; 93010; 93306; 94002; 94003; 96365-59; 99291-25; A9270; C1751; C9113; G0008; G0378; J1650; J2185; J2704; J7030; J7040; J7120; Q9967